=== PATIENT | male | born 1970 | race Caucasian/White ===

== ENCOUNTER 2021-02-16 08:19 | Day surgery (SDC) | payer OTHER ==
[~2021-02-16 08:19] MED LIST: LIPITOR40 MG PO; LISINOPRIL2.5 MG PO
== END 2021-02-16 16:20 | disposition home or self-care (01) ==
LOC: CIR.AMB 08:19
PROVIDERS: ATTEND Orthopaedic Surgery
DX: M77.11 Lateral epicondylitis, right elbow (principal); G56.31 Lesion of radial nerve, right upper limb; Z20.822 Contact with and (suspected) exposure to COVID-19